=== PATIENT | female | born 1970 | race Caucasian/White ===

== ENCOUNTER 2023-02-27 02:39 | Emergency (ER) | payer OTHER, SELFPAY ==
[2023-02-27] VITALS (14 sets, daily range): BP systolic 134–210; BP diastolic 82–170; PULSE 82–91; RESP 16–18; TEMP 36.6; O2SAT 90–98; BMI 39.1
--- NOTE | 2023-02-27 02:55 | CT_ITS ---
We are attempting to reach an attending provider to discuss findings. An addendum with communication details will be sent when the communication is complete. INDICATION: Headache went to bed with slight medina, woke up with severe medina and n/v, hx diab EXAMINATION: CT BRAIN - CT Head or Brain W/O Contrast Injection TECHNIQUE: Multiple axial images were obtained of the head without intravenous contrast. A radiation dose optimization technique was used for this scan. IV Contrast dosage and agent: None. RADIATION DOSAGE (If Supplied By Facility): CTDIvol = ( 44.99 ) mGy, DLP = ( 796.11 ) mGycm COMPARISON: FINDINGS: BRAIN: No acute parenchymal bleed. No edema. Mass effect on the left cerebral hemisphere and left lateral ventricle, with shift of midline structures to the right 5 mm. VENTRICLES AND SULCI: Not dilated. EXTRA-AXIAL: Acute subdural hematoma along the left cerebral hemisphere, 6 mm maximal thickness frontoparietal region, with smaller component layering along the tentorium on the left. CALVARIUM / SKULL BASE: Unremarkable. FACE/SINUSES: Unremarkable. SOFT TISSUES: Unremarkable. CT/Brain/Head without Contrast IMPRESSION: Acute left cerebral hemispheric subdural hematoma with 5 mm midline shift left to right. Electronically Signed: yCndy Sloan MD at 3:36 EDT ,
--- NOTE | 2023-02-27 02:56 | EDS_ITS ---
HPI History of Present Illness Chief Complaint: Nausea/Vomiting Narrative Narrative: 53-year-old female past medical history of diabetes for which she takes metformin, presents with headache that she has had for the last few hours. She states she went to bed this evening with a slight headache, but then awoke at around 1245, 2 hours ago with headache all over. She became nauseated and vomited 3 times without any blood in her emesis. She denies any abdominal pain, no diarrhea, no fevers or chills. No cough, chest pain, shortness of breath. She thought maybe yesterday evening she was starting to get a cold/upper respiratory infection, and went to bed, but awoke with headache. At that time, she had photophobia and phonophobia, but feels improved after vomiting. It was not a thunderclap headache as she went to bed with slight headache and sinus congestion. She does not have a history of migraine headaches. [facility] Medical History Depression Diabetes Home Medications metformin 500 mg tablet 500 mg PO BID 02/27/23 [History Last Taken Unknown] sitagliptin phosphate 100 mg tablet 100 mg PO DAILY 02/27/23 [History Last Taken Unknown] Allergy/AdvReac Type Severity Reaction Status Date / Time No Known Allergies Allergy Verified 02/27/23 02:40 Surgical History H/O hernia repair Social History Smoking Status: Never smoker ROS ROS ED ROS Narrative Constitutional: No fever, no chills. HEENT: No sore throat. No neck pain. No loss of vision. No rhinorrhea. Beginnings of upper respiratory infection symptoms reported. Cardiovascular: No chest pain. No palpitations. No pedal edema. Respiratory: No cough, no shortness of breath. Abdominal: No abdominal pain. Positive nausea with 3 episodes of nonbloody vomiting. No diarrhea. Genitourinary: No dysuria. No hematuria. Musculoskeletal: No myalgias. No arthralgias. Neurologic: Positive headaches. No dizziness. No lightheadedness. Skin: No rash. No change in color. Psychiatric: No depression. No anxiety. EXAM Physical Exam Narrative Exam Narrative: Afebrile. Vital signs noted. Elevated systolic and diastolic blood pressures at 189/100. HEENT: Normocephalic. Atraumatic. PERRL, EOMI. Neck soft and supple. No point tenderness or step off. Cardiovascular: Regular rate and rhythm. No murmurs, rubs, or gallops appreciated. Respiratory: No tachypnea. Lungs clear to auscultation bilaterally. Gastrointestinal: Abdomen soft, nontender, with normoactive bowel sounds. No rebound or guarding. Neurological: Awake. Alert. Nonfocal, nonlateralizing. Skin: No rash. Normal color. No pallor. Musculoskeletal: No pedal edema. Full range of motion extremities. Const Vital Signs: 02/27/23 02:44 02/27/23 03:40 02/27/23 03:40 Temperature 97.8 F Temperature Source Temporal Pulse Rate 82 90 Respiratory Rate 16 18 Blood Pressure 189/100 H 177/100 H Blood Pressure Mean 129 125 Pulse Ox 96 95 Oxygen Delivery Method Room Air Room Air Room Air 02/27/23 03:51 02/27/23 04:21 02/27/23 04:38 Temperature Temperature Source Pulse Rate 91 87 85 Respiratory Rate 18 18 18 Blood Pressure 210/170 H 199/101 H 167/82 H Blood Pressure Mean 183 133 110 Pulse Ox 96 90 97 Oxygen Delivery Method Room Air Room Air Room Air 02/27/23 04:45 02/27/23 05:00 02/27/23 05:33 Temperature Temperature Source Pulse Rate 84 83 84 Respiratory Rate 18 16 16 Blood Pressure 150/87 H 154/89 H 142/94 H Blood Pressure Mean 108 110 110 Pulse Ox 94 98 98 Oxygen Delivery Method Room Air Room Air Room Air 02/27/23 05:45 Temperature Temperature Source Pulse Rate 83 Respiratory Rate 18 Blood Pressure 134/85 H Blood Pressure Mean 101 Pulse Ox 94 Oxygen Delivery Method Room Air MDM MDM MDM Narrative Medical decision making narrative: I am concerned about intracranial hemorrhage/subarachnoid because although I do not think it is necessarily a thunderclap headache, but she may have a hypertensive intracranial hemorrhage because of the elevated blood pressure. She could also have a sinus headache. Migraine headache is less likely because she does not have history. COVID is also in the differential. I do not feel that CT imaging of the abdomen and pelvis is indicated for the nausea and vomiting, but I will obtain basic laboratory work including CBC, CMP, and lipase. I initially reviewed her CT imaging and see evidence of hemorrhage on the left. I will add coagulation studies. She did receive Reglan for her nausea. I discussed the patient with the radiologist, who states that this is a subdural left hemispheric hemorrhage but no evidence of intraparenchymal bleeding. There is no skull fracture or soft tissue swelling. Additionally, patient denies any head trauma. No recent falls. Hemorrhagic stroke medications were started in an attempt to lower her blood pressure. I reviewed the patient's laboratory work and she has a normal white count of 9.6, hemoglobin normal at 13.6, hematocrit 40.0. Platelet count normal at 225. INR normal at 1.1 with an APTT of 35.4. Sodium is slightly low at 135 which I think is nonspecific, potassium is 4.4 normal. Normal BUN of 12, normal creatinine of 0.75. I discussed the patient with Dr. Artur Amaral at [facility] who has accepted her to the ICU. He will notify neurosurgery. Patient will be transferred in guarded condition. Currently, she is in stable condition. History & Record Review Discussion w/independent historian: Patient and Family Additional record(s) reviewed:: Prior outpatient record Lab Data Attestation: I reviewed the patient's lab results. Labs: Laboratory Results - last 24 hr 02/27/23 02/27/23 02/27/23 00:22 03:00 03:00 WBC 9.6 RBC 5.03 Hgb 13.6 Hct 40.0 MCV 79.5 L MCH 27.0 MCHC 34.0 RDW Std Deviation 36.7 RDW Coeff of [place] 12.9 Plt Count 225 MPV 11.1 Immature Gran % (Auto) 0.500 Neut % (Auto) 78.2 H Lymph % (Auto) 11.9 L [place] % (Auto) 7.5 Eos % (Auto) 1.4 Baso % (Auto) 0.5 Absolute Neuts (auto) 7.5 Absolute Lymphs (auto) 1.14 Nucleated RBC % 0 PT 14.2 INR 1.1 APTT 35.4 Sodium 135 L Potassium 4.4 Chloride 103 Carbon Dioxide 26.0 Anion Gap 6 BUN 12 Creatinine 0.75 Estim Creat Clear Calc 62.31 Est GFR (MDRD) Af Amer 104 Est GFR (MDRD) Non-Af 86 BUN/Creatinine Ratio 16.0 Glucose 343 H Calcium 8.3 L Total Bilirubin 0.50 AST 25 ALT 38 Alkaline Phosphatase 92 Total Protein 7.3 Albumin 3.7 Globulin 3.6 Albumin/Globulin Ratio 1.0 Lipase 112 Radiography Diagnostic Testing: Clinical Impression(s) from Imaging Studies Brain CT 02/27/23 02:55 IMPRESSION: Acute left cerebral hemispheric subdural hematoma with 5 mm midline shift left to right. Electronically Signed: Cyndy Sloan MD at 3:36 EDT , ADDENDUM: 02/27/23 0350 IMPRESSION: Acute left cerebral hemispheric subdural hematoma with 5 mm midline shift left to right. N.B. : The above Results were Read Back by Cyndy Sloan MD to Mihai Zuniga MD, and understanding confirmed on 02/27/2023 03:43:07 (ET). Electronically Signed: Cyndy Sloan MD at 3:36 EDT , Management Discussion w/another healthcare provider: [employer] Architect and Radiologist Critical Care Time Critical Care Time: Yes Critical care time (excluding procedures): 30-74 minutes (31 minutes), Including time spent:, Discussing w/Patient &/or Family/Interactive Project Manager, Discussing w/Consultants, Arranging Admission or Transfer and Performing Direct Patient Care at Bedside Discharge Plan Triage Chief Complaint: Nausea/Vomiting ED Provider: Mihai Zuniga Dx/Rx/DC Orders Prescriptions: No Action metformin 500 mg Tablet 500 mg PO BID sitagliptin phosphate 100 mg Tablet 100 mg PO DAILY Primary Care Provider: David Hawthorne Referrals: David Hawthorne MD [Primary Care Provider] -
[2023-02-27] MEDS: Metoclopramide 10 MG/2 ML Vial 5 MG IV (03:07)
[2023-02-27 03:26] LABS: Absolute Lymphocyte Count 1.14 X10^3/uL (0.83-4.51); Absolute Neutrophil Count 7.5 X10^3/uL (2.0-7.7); Basophil# 0.05 X10^3/uL; Basophil% 0.5 % (0-1); Eosinophil# 0.13 X10^3/uL; Eosinophils% 1.4 % (0-5); Hemoglobin 13.6 g/dL (12.0-15.0); Lymphocyte # 1.14 X10^3/ul (0.83-4.51); Lymphocyte % 11.9 % (19-41); Mean Corpuscular Volume 79.5 fL (81-99); Mean Platelet Vol. 11.1 fl (6.2-12.0); Monocyte# 0.72 X10^3/uL; Monocyte% 7.5 % (0-10); NRBC Flagged by Analyzer 0 % (0-5); Neutrophil # 7.51 X10^3/uL (2.7-7.7); Neutrophil % 78.2 % (47-70); Platelet Count 225 K/mm3 (150-450); RBC Distribution Width CV 12.9 % (11.6-14.6); RBC Distribution Width SD 36.7 fl (35.1-43.9); Red Blood Count 5.03 M/mm3 (4.2-5.4); White Blood Count 9.6 K/mm3 (4.4-11.0)
[2023-02-27 03:55] LABS: International Normalized Ratio 1.1; Partial Thromboplast Time 35.4 Seconds (24.1-36.2); Prothrombin Time (Protime)PT. 14.2 SECONDS (11.7-14.9)
[2023-02-27 03:58] LABS: AST(SGOT) 25 U/L (15-37); Alanine Aminotransfer ALT/SGPT 38 U/L (13-56); Albumin, Serum 3.7 g/dL (3.2-5.0); Alkaline Phosphatase 92 U/L (45-117); Anion Gap 6 (5-15); BUN 12 mg/dL (7-18); Calcium,Total 8.3 mg/dL (8.5-10.1); Chloride 103 mmol/L (98-107); Creatinine, Serum 0.75 mg/dL (0.55-1.02); EST Glomerular Filtration Rate 86 mL/min (>60); Est Glom Filt Rate - Afr Amer 104 mL/min (>60); Estimated Creatinine Clearance 62.31 ml/min; Globulin 3.6 g/dL (2.2-4.2); Glucose 343 mg/dL (74-106); Lipase 112 U/L (73-393); Potassium 4.4 mmol/L (3.5-5.1); Protein, Total 7.3 g/dL (6.4-8.2); Sodium Level 135 mmol/L (136-145)
[2023-02-27] MEDS: Labetalol (Prefilled) 20 MG/4 ML IV ×2 (04:18→05:32)
--- NOTE | 2023-02-27 04:32 | NURSING ---
CALLED PHYSICANS TO SET UP TRANSPORT TO [facility] ICU ETA GIVEN WAS 2 HOURS- ASKED THEM TO [facility]SOURCE TO TRY TO HAVE A FASTER TRANSPORT.
[2023-02-27] MEDS: hydrALAZINE 20 MG/ML Vial IV (07:01)
--- NOTE | 2023-02-27 07:05 | ED.RN ---
transporting squad unable to transport pt with IV drip. Verbal order from doctor to given PRN hydralazine for bp.
== END 2023-02-27 07:07 | disposition short-term general hospital (02) ==
LOC: ED 03:18
PROVIDERS: Emergency Provider Emergency Medicine; PCP Family Medicine; Visit Provider Emergency Medicine
DX: S06.5X0A Traumatic subdural hemorrhage without loss of consciousness, initial encounter (principal); E11.9 Type 2 diabetes mellitus without complications; R11.2 Nausea with vomiting, unspecified; R03.0 Elevated blood-pressure reading, without diagnosis of hypertension; Z79.84 Long term (current) use of oral hypoglycemic drugs
CPT/HCPCS: 70450; 80053; 83690; 85025; 85610; 85730; 87428; 96374; 99285; A4216